=== PATIENT | male | born 1960 | race Caucasian/White ===

== ENCOUNTER 2021-01-06 09:30 | Emergency (ER) | payer BC ==
--- NOTE | 2021-01-06 10:23 | EDM.PDOC ---
ED HPI GENERAL MEDICAL PROBLEM - General Chief Complaint: Headache Stated Complaint: HEADACHE AFTER SPINAL FUSION Time Seen by Provider: 01/06/21 10:00 Source of Information: Reports: Patient History Limitations: Reports: No Limitations - History of Present Illness INITIAL COMMENTS - FREE TEXT/NARRATIVE: pt is day 5 S/P cervical spinal fusion at multi levels , tells me he was feeling fine post operatively and since last night started experiencing sever HAs pressure like pain , also describe some discomfort at his neck, pt denies fever chills or any weakness or numbness or problems with gait, has been tolerating diet well and has no other medical concerns. he tried own narcotics but did not seem to help with pain. 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) Posterior headache Pain Score (Numeric/FACES): 8 - Related Data Allergies Allergy/AdvReac Type Severity Reaction Status Date / Time No Known Allergies Allergy Verified 01/06/21 09:53 Home Meds: Home Meds Acetaminophen [Tylenol] 325 mg PO Q3H PRN 01/06/21 [History] Losartan [Cozaar] 100 mg PO DAILY 01/06/21 [History] amLODIPine [Norvasc] 5 mg PO DAILY 01/06/21 [History] hydroCHLOROthiazide [Hydrochlorothiazide] 25 mg PO DAILY 01/06/21 [History] oxyCODONE 5 mg PO Q4H PRN 01/06/21 [History] Past Medical History Cardiovascular History: Reports: Hypertension Musculoskeletal History: Reports: Back Pain, Chronic Neurological History: Reports: None - Infectious Disease History Infectious Disease History: Reports: Chicken Pox - Past Surgical History HEENT Surgical History: Reports: Adenoidectomy, Tonsillectomy Neurological Surgical History: Reports: C-Spine, Lumbar Spine, Spinal Fusion Social & Family History - Family History Family Medical History: No Pertinent Family History - Tobacco Use Tobacco Use Status *Q: Former Tobacco User Used Tobacco, but Quit: Yes Month/Year Tobacco Last Used: 12/2020 - Caffeine Use Caffeine Use: Reports: Soda - Alcohol Use Days Per Week of Alcohol Use: 1 Number of Drinks Per Day: 1 Total Drinks Per Week: 1 - Recreational Drug Use Recreational Drug Use: No ED ROS GENERAL - Review of Systems Review Of Systems: See Below Constitutional: Reports: No Symptoms, Fatigue HEENT: Reports: No Symptoms. Denies: Ear Pain, Eye Discharge, Eye Pain, Nosebleed, Vision Change Respiratory: Reports: No Symptoms Cardiovascular: Reports: No Symptoms GI/Abdominal: Reports: No Symptoms. Denies: Abdominal Pain, Anorexia Musculoskeletal: Reports: Neck Pain Skin: Reports: No Symptoms Neurological: Reports: Headache. Denies: Confusion, Dizziness, Numbness, Seizure, Syncope ED EXAM, GENERAL - Physical Exam Exam: See Below Exam Limited By: No Limitations General Appearance: Alert Nose: Normal Inspection Head: Atraumatic, Normocephalic Neck: Normal Inspection, Supple, Non-Tender, Full Range of Motion, Other (wound healing well it anterior on the right side no signs of infection .) Respiratory/Chest: No Respiratory Distress, Lungs Clear Cardiovascular: Normal Peripheral Pulses, Regular Rate, Rhythm GI/Abdominal: Normal Bowel Sounds, Soft, Non-Tender Back Exam: Normal Inspection, Full Range of Motion Extremities: Normal Inspection, Normal Range of Motion, No Pedal Edema, Normal Capillary Refill Neurological: Alert, Oriented, CN II-XII Intact, Normal Cognition, Normal Reflexes, No Motor/Sensory Deficits Psychiatric: Normal Affect Skin Exam: Warm, Dry Course - Vital Signs Text/Narrative:: labs results were explained to pt , he has very mild elevation with WBC , likely secondary to recent surgical stress , there are no signs clinically of acute infection, and pt is comfortable now after fluids and 1 mg Dilaudid. pt is stable for discharge home with instructions to maintain supportive mng and to use own oxy 5 mg up to 2 tablets if needed ever 6 hrs. pt to follow with PCP as planned. Last Recorded V/S: Last Vital Signs Temp 36.9 C 01/06/21 09:44 Pulse 108 H 01/06/21 09:44 Resp 18 01/06/21 09:44 BP 155/108 H 01/06/21 09:44 Pulse Ox 98 01/06/21 09:44 - Orders/Labs/Meds Orders: Active Orders 24 hr Category Date Time Status Sodium Chloride 0.9% [Normal Saline] 1,000 ml Med 01/06/21 10:26 Active IV .BOLUS Medication Orders Sodium Chloride (Normal Saline) 1,000 mls @ 999 drops/hr IV .BOLUS ONE Stop: 01/07/21 01:26 Last Admin: 01/06/21 10:42 Dose: 999 drops/hr Documented by: VICENTE Labs: Laboratory Tests 01/06/21 01/06/21 Range/Units 10:55 10:55 WBC 12.2 H (3.2-10.1) x10-3/uL RBC 4.39 (3.90-5.90) x10(6)uL Hgb 14.0 (12.9-17.7) g/dL Hct 42.1 (38.3-50.1) % MCV 95.9 (80.8-98.7) fL MCH 31.9 (27.0-33.3) pg MCHC 33.3 (28.7-35.3) g/dL RDW 14.3 (12.4-15.0) % Plt Count 201 (117-477) x10(3)uL MPV 8.8 (6.7-11.0) fL Neut % (Auto) 82.3 H (40.3-71.8) % Lymph % (Auto) 8.0 L (15.8-45.3) % Collin % (Auto) 9.1 (5.5-15.2) % Eos % (Auto) 0.3 (0.1-6.8) % Baso % (Auto) 0.3 (0.3-3.8) % Neut # (Auto) 10.0 H (1.7-6.9) x10-3/uL Lymph # (Auto) 1.0 (0.5-4.5) x10-3/uL Collin # (Auto) 1.1 (0.0-1.2) x10-3/uL Eos # (Auto) 0.0 (0.0-0.6) x10-3/uL Baso # (Auto) 0.0 (0.0-0.3) x10-3/uL Sodium 138 (135-145) mmol/L Potassium 4.0 (3.5-5.3) mmol/L Chloride 102 D (100-110) mmol/L Carbon Dioxide 26 (21-32) mmol/L BUN 14 (7-18) mg/dL Creatinine 0.9 (0.70-1.30) mg/dL Est Cr Clr Drug Dosing 101.11 mL/min Estimated GFR (MDRD) > 60 (>60) BUN/Creatinine Ratio 15.6 (9-20) Glucose 123 H (80-116) mg/dL Calcium 9.0 (8.6-10.2) mg/dL Total Bilirubin 0.6 (0.1-1.3) mg/dL AST 22 D (5-25) IU/L ALT 17 D (12-36) U/L Alkaline Phosphatase 64 (56-112) IU/L Total Protein 7.1 (6.0-8.0) g/dL Albumin 3.2 L (3.5-5.2) g/dL Globulin 3.9 g/dL Albumin/Globulin Ratio 0.8 Meds: Medications Generic Name Dose Route Start Last Admin Trade Name Freq PRN Reason Stop Dose Admin Sodium Chloride 1,000 mls @ 999 drops/hr 01/06/21 10:26 01/06/21 10:42 Normal Saline IV 01/07/21 01:26 999 drops/hr .BOLUS ONE Administration Discontinued Medications Generic Name Dose Route Start Last Admin Trade Name Rolandq PRN Reason Stop Dose Admin Hydromorphone HCl 1 mg 01/06/21 10:26 01/06/21 10:42 Hydromorphone 2 Mg/Ml Sdv IVPUSH 01/06/21 10:27 1 mg ONETIME ONE Administration Ondansetron HCl 4 mg 01/06/21 10:41 01/06/21 10:42 Ondansetron 4 Mg/2 Ml Sdv IVPUSH 01/06/21 10:42 4 mg ONETIME ONE Administration Departure - Departure Time of Disposition: 11:33 Disposition: Home, Self-Care 01 Clinical Impression: Post-op pain - Discharge Information Referrals: Josh Ivory MD [Primary Care Provider] - Forms: ED Department Discharge Sepsis Event Note (ED) - Evaluation Sepsis Screening Result: No Definite Risk - Focused Exam Vital Signs: Vital Signs Temp Pulse Resp BP Pulse Ox 01/06/21 09:44 36.9 C 108 H 18 155/108 H 98 - My Orders Last 24 Hours: My Active Orders 01/06/21 10:26 Sodium Chloride 0.9% [Normal Saline] 1,000 ml IV .BOLUS - Assessment/Plan Last 24 Hours: My Active Orders 01/06/21 10:26 Sodium Chloride 0.9% [Normal Saline] 1,000 ml IV .BOLUS
[2021-01-06] MEDS ORDERED: Sodium Chloride 0.9% 1,000 ML IV ONE (10:26)
[2021-01-06] MEDS ORDERED: HYDROmorphone 2 MG/ML SDV IVPUSH ONE (10:26)
[2021-01-06] MEDS ORDERED: Ondansetron 4 MG/2 ML SDV IVPUSH ONE (10:41)
== END 2021-01-06 11:53 | disposition home or self-care (01) ==
LOC: FB.ED 09:30
DX: G89.18 Other acute postprocedural pain (principal); R51.9 Headache, unspecified; I10 Essential (primary) hypertension; Z87.891 Personal history of nicotine dependence; Z79.899 Other long term (current) drug therapy
CPT/HCPCS: 36415; 80053; 85025; 96374; 96375; 99284; J1170; J2405; J7030

== ENCOUNTER 2024-09-17 07:40 | Day surgery (SDC) | payer BC, MEDICARE ==
[~2024-09-17 07:40] MED LIST: Sodium Chloride 0.9% 10 ML Syringe FLUSH PRN
[2024-09-17] MEDS ORDERED: Propofol 200 MG/20 ML SDV IV ONE (07:41)
[2024-09-17] MEDS ORDERED: Lidocaine 2% 100 MG/5 ML Syringe IVPUSH ONE (07:41)
[2024-09-17] MEDS: Lactated Ringers 1,000 ML IV SCH (08:18)
[2024-09-17] MEDS ORDERED: Glycopyrrolate 0.2 MG/ML 5 ML MDV IV ONE ×2 (09:15→09:45)
[2024-09-17] MEDS: Simethicone Drops 40 MG/0.6 ML 30 ML Bottle ONE (09:18)
== END 2024-09-17 11:44 | disposition home or self-care (01) ==
LOC: FB.SDS 07:40
PROVIDERS: ATTEND Surgery
DX: Z12.11 Encounter for screening for malignant neoplasm of colon (principal); D12.2 Benign neoplasm of ascending colon; D12.6 Benign neoplasm of colon, unspecified; K57.30 Diverticulosis of large intestine without perforation or abscess without bleeding; Z86.0101 Personal history of adenomatous and serrated colon polyps; F17.210 Nicotine dependence, cigarettes, uncomplicated; Z79.899 Other long term (current) drug therapy
CPT/HCPCS: 00811; 88305; A9270-GY; J1596; J2704; J7120